=== PATIENT | male | born 1965 | race Caucasian/White ===

== ENCOUNTER 2023-09-12 22:54 | Emergency (ER) | payer BC, SELFPAY ==
[2023-09-12 22:54] VITALS: BMI 23.3
[2023-09-12 22:56] VITALS: BP 150/91
[2023-09-12 23:49] VITALS: BP 118/73
[2023-09-13] VITALS: BP 132/73
--- NOTE | 2023-09-13 00:16 | ED.GENMED ---
History of Present Illness
General
Chief Complaint: Visual Problem
Source: patient and spouse
Exam Limitations: none
Time Seen by Provider: 09/12/23 23:33
Nursing documentation reviewed up to this point in time: agreed with
Travel History
Have you had any contact with someone who has COVID-19?: No
Do you have any symptoms of coronavirus? Fever > 100 degrees, chills, cough, shortness of breath, sore throat, loss of taste or smell, muscle aches, or headache?: No
History of Present Illness
History of Present Illness:
This is a 58-year-old gentleman with no significant past medical history, takes no medicines on a daily basis who presents with abrupt onset of painless blurred vision left eye that began around 10 PM while watching TV. Left eye blurred vision then
progressed to spots in his vision, flashing lights and darkened vision but no complete loss of vision. He denies a sense of dark curtain and he continues to have no pain, no other associated symptoms. Blurred vision and scotomas in his left eye
lasted approximately 10 minutes and resolved but then returned again in similar cycle, lasting approximately 10 minutes, resolving and then again en route to the hospital but since arrival he has had complete resolution of blurred vision, no further
scotomas. He continues to deny eye pain, denies headache. No dizziness nor lightheadedness.
No history of similar episodes in the past.
He had recent ophthalmology evaluation approximately 2 months ago when he presented with a stye of his left upper eyelid. Stye resolved with antibiotic ointment and he reports unremarkable ophthalmology exam at that time including normal dilated
retinal exam, normal intraocular pressures. He follows with director emergency services Dr. Kristian Tello, [facility]. [facility]
His only daily medication is Zyrtec.
Lifelong non-smoker.
Past History
Past History
ED Past Medical History: Other (Seasonal allergies); Negative Arrthythmia, HTN, Hypercholesterolemia or NIDDM
ED Past Surgical History: Other (Umbilical hernia repair, vasectomy)
Social History
Tobacco: Non-smoker
Personal: Partner (Lorri�)
Living: with family
Employment: Employed
Family History
Family History: Negative Diabetes or Hypertension
Phy Exam
Physical Exam
Physical Exam:
GENERAL: 58-year-old gentleman appears his stated age, bright and alert, pleasant, appears in no acute distress. Significant other is accompanying. Initial blood pressure in triage 150/91, upon recheck 118/70.
EYE: pupils equal and reactive. Extraocular muscles intact. Visual acuity grossly intact. Visual patton intact. Negative APD. Anicteric. Left eye funduscopic exam reveals sharp disc margins. No evidence of central retinal vein occlusion nor
central retinal artery occlusion.
NECK: Supple, nontender, no meningismus, no significant adenopathy. No JVD nor bruit.
ENT: posterior pharynx is clear, oral mucosa is moist. TM clear b/l, moderately boggy pale blue turbinates without rhinorrhea.
CARDIAC: Regular rate and rhythm. no murmur.
LUNGS: Clear breath sounds bilaterally, no acute respiratory distress, no wheezes/rales/rhonchi
ABDOMEN: Soft, nondistended, without focal tenderness
NEUROLOGICAL: Alert and oriented x3, no focal neuro deficits. Gait is sorensen and steady.
SKIN: Warm and dry, normal color, skin intact. No rash.
MUSCULOSKELETAL: No C/C/E. peripheral pulses are full and equal b/l. No palpable tenderness.
PSYCH: Normal and appropriate interaction.
Course
Vital Signs
Initial and Last Documented VS:
Initial Vital Signs
Pulse Resp BP Pulse Ox
71 16 150/91 96
09/12/23 22:56 09/12/23 22:56 09/12/23 22:56 09/12/23 22:56
Last Documented Vital Signs
Temp Pulse Resp BP Pulse Ox
98 F 71 16 132/73 96
09/12/23 23:01 09/12/23 22:56 09/12/23 22:56 09/13/23 00:00 09/12/23 22:56
MDM/Problems Addressed
Differential Diagnosis Includes:
Patient presents with sudden onset of painless blurred vision left eye, intermittent over the past hour, currently asymptomatic.
Concern for intermittent retinal vein occlusion, intermittent retinal artery occlusion, retinal detachment, ischemic optic neuropathy, vitreous hemorrhage, Ocular migraine.
He remains asymptomatic since arrival to the ED.
No known risk factors for thromboembolism nor hypertensive retinal disease.
Mildly elevated blood pressure in triage has quickly normalized without intervention.
Reported unremarkable ophthalmology evaluation within the past 2 months.
Will continue to observe for return of blurred vision versus onset of headache which may signify ocular migraine.
As overall exam is benign, unremarkable, no indication for imaging nor laboratory studies.
I would recommend prompt follow-up with director emergency services and patient plans to call his director emergency services tomorrow morning and according to significant other, ophthalmology office is open tomorrow, Friday morning.
*Pulse Oximetry
Patient hypoxic: no
*Critical Care Note
Total Time (30-74mins, 75-104mins- exclusive of procedures): Not Applicable
Update Note
Update Note:
09/13/2023 0125 AM
Patient remains asymptomatic, no further complaints of blurred vision nor scotomas. Continues to deny headache.
Will discharge to home with recommendations for prompt follow-up with his director emergency services. He plans to call his director emergency services, Dr. Kristian Tello at [facility] in the morning.
ED Attending Note
-
Portions of this chart may have been created with voice recognition software.� Occasional wrong word or��sound alike� substitutions may have occurred due to the inherent limitations of voice recognition software.
Discharge Plan
Departure
Patient Disposition: Home (Routine Discharge)
Date of Disposition: 09/13/23
Time of Disposition: 01:20
Patient with high blood pressure during this ER visit?: No
Condition: Good
Discharge Problem:
painless blurred vision left eye
Instructions: Floaters in the Eye
Referrals:
Kristian Hennessy DO [Family Provider] -
Activity Restrictions/Additional Instructions:
Call your director emergency services in the morning for prompt follow-up appointment.
Interventions
Interventions:
*Risk Screen - Suicide Last Done: 09/12/23 22:56
*General Assessment Last Done: 09/12/23 22:56
*Neglect/Abuse Screening Last Done: 09/12/23 22:56
ED- Fall Risk Assessment Last Done: 09/13/23 00:23
*ED COVID-19 Vaccine History Last Done: 09/13/23 00:19
ED- Neurological Assessment Last Done: 09/13/23 00:23
ED-EENT Assessment Last Done: 09/13/23 00:23
ED Swallowing Screen Last Done: 09/13/23 00:23
Discharge Date and Time
Print Language: [id number]
== END 2023-09-13 01:35 | disposition home or self-care (01) ==
LOC: EMR 22:54
PROVIDERS: EMERGENCY PHYSICIAN Emergency Medicine; FAMILY PHYSICIAN Family Medicine
DX: H53.8 Other visual disturbances (principal)
CPT/HCPCS: 99283

== ENCOUNTER → 2024-01-09 12:49 | Outpatient (REF) | payer BC, SELFPAY | LOC: HWRCS 12:49 | PROVIDERS: ATTENDING PHYSICIAN Internal Medicine Cardiovascular Disease; FAMILY PHYSICIAN Family Medicine | DX: D68.59 Other primary thrombophilia (principal) | CPT/HCPCS: 93306 ==